=== PATIENT | female | born 1965 | race Caucasian/White ===

== ENCOUNTER 2017-11-27 23:33 | Emergency (ER) | payer OTHER ==
[~2017-11-27] VITALS: Ht 157.5 cm; Wt 86.2 kg
[~2017-11-27 23:33] MED LIST: APAP500; FLONASE 0.05%50 MCG NASAL
[2017-11-28] MEDS ORDERED: MOBIC15 MG PO (03:08)
[2017-11-28] MEDS ORDERED: ZOFRAN ODT4 MG PO (03:08)
[2017-11-28 03:21] VITALS: BP 150/82
== END 2017-11-28 03:22 | disposition home or self-care (01) ==
LOC: ER 23:33
DX: S09.90XA Unspecified injury of head, initial encounter (principal); S16.1XXA Strain of muscle, fascia and tendon at neck level, initial encounter; R07.9 Chest pain, unspecified; M25.569 Pain in unspecified knee; Z90.89 Acquired absence of other organs; Z88.6 Allergy status to analgesic agent; Z88.1 Allergy status to other antibiotic agents; Z91.040 Latex allergy status; Z88.5 Allergy status to narcotic agent; V89.2XXA Person injured in unspecified motor-vehicle accident, traffic, initial encounter; Y93.89 Activity, other specified; Y92.89 Other specified places as the place of occurrence of the external cause; Y99.8 Other external cause status

== ENCOUNTER → 2018-04-28 | Outpatient (CLI) | payer OTHER ==
[~2018-04-28] MED LIST changes: +MOBIC15 MG PO; +ZOFRAN ODT4 MG PO
--- NOTE | ~2018-04-28 | 2DMMODE ---
[facility] [place] [address] 2 D/M-MODE ECHOCARDIOGRAM Name: ROBEL BUSH Room #: REG CL [facility]#: [id number] Admission: 04/28/18 Attend Phys: Jesus Friedman MD Discharge: Date of : 63 Date of Service: 04/28/18 1047 Report #: [id number] THIS REPORT FOR: //name// APPROVED REPORT Study performed: 04/28/2018 09:28:58 EXAM: Comprehensive 2D, Doppler, and color-flow Echocardiogram Patient Location: Out-Patient Status: routine BSA: 1.85 HR: 75 bpm BP: 119/74 mmHg Rhythm: NSR Other Information Study Quality: Adequate Indications Chest Pain 2D Dimensions RVDd: 18.79 mm IVSd: 8.84 (7-11mm) LVOT Diam: 19.83 (18-24mm) LVDd: 42.63 mm PWd: 8.57 (7-11mm) Ascending Ao: 33.05 (22-36mm) LVDs: 28.72 (25-40mm) Aortic Root: 33.50 mm Volumes Left Atrial Volume (Systole) Single Plane 4CH: 37.63 mL Single Plane 2CH: 50.08 mL LA ESV Index: 25.00 mL/m2 Aortic Valve AoV Peak Ant.: 1.30 m/s AO Peak Gr.: 6.78 mmHg LVOT Max P.54 mmHg LVOT Max V: 1.18 m/s MYRNA Vmax: 2.79 cm2 Mitral Valve E/A Ratio: 0.8 MV Decel. Time: 221.48 ms MV E Max Ant.: 0.67 m/s [facility] [address] [place] [address] 2 D/M-MODE ECHOCARDIOGRAM Name: ROBEL BUSH Room #: REG [facility]#: [id number] Admission: 04/28/18 Attend Phys: Jesus Friedman MD Discharge: Date of : 63 Date of Service: 04/28/18 1047 Report #: [id number] A Ant.: 0.79 m/s MV PHT: 64.23 ms IVRT: 87.66 ms Pulmonary Valve PV Peak Ant.: 1.03 m/s PV Peak Gr.: 4.20 mmHg Pulmonary Vein P Vein S: 0.76 m/s P Vein A: 0.39 m/s P Vein D: 0.34 m/s P Vein A Dur.: 92.3 msec P Vein S/D Ratio: 2.24 Tricuspid Valve TR Peak Ant.: 2.01 m/s RAP Estimate: 5.00 mmHg TR Peak Gr.: 16.16 mmHg PA Pressure: 21.00 mmHg Left Ventricle The left ventricle is normal size. There is normal LV segmental wall motion. There is normal left ventricular wall thickness. The left ventricular systolic function is normal. LVEF is 60-65%. Mild diastolic dysfunction is present (impaired relaxation pattern). Right Ventricle The right ventricle is normal size. The right ventricular systolic function is normal. Atria The left atrium size is normal. The right atrium size is normal. Aortic Valve The aortic valve is normal in structure. No aortic regurgitation is present. There is no aortic valvular stenosis. Mitral Valve The mitral valve is normal in structure. There is no mitral valve regurgitation noted. No evidence of mitral valve stenosis. Tricuspid Valve The tricuspid valve is normal in structure. Trace tricuspid regurgitation. Estimated PAP is 20-25mmHg. Pulmonic Valve The pulmonary valve is normal in structure. Trace pulmonic [address] [address] 2 D/M-MODE ECHOCARDIOGRAM Name: ROBEL BUSH Room #: REG CL [facility]#: [id number] Admission: 04/28/18 Attend Phys: Jesus Friedman MD Discharge: Date of : 63 Date of Service: 04/28/18 1047 Report #: [id number] regurgitation. Great Vessels The aortic root is normal in size. The ascending aorta is normal in size. IVC is normal in size and collapses >50% with inspiration. Pericardium There is no pericardial effusion. <Conclusion> The left ventricle is normal size. There is normal left ventricular wall thickness. The left ventricular systolic function is normal. Mild diastolic dysfunction is present (impaired relaxation pattern). The right ventricle is normal size. The left atrium size is normal. The aortic valve is normal in structure. There is no mitral valve regurgitation noted. Trace tricuspid regurgitation. Estimated PAP is 20-25mmHg. <ELECTRONICALLY SIGNED> By: Jesus Friedman MD 04/28/18 1047 1047 [id number] Jesus Friedman MD /INF
== END ==
LOC: NUC 06:57
DX: R07.9 Chest pain, unspecified (principal); R00.2 Palpitations; R06.00 Dyspnea, unspecified; E78.5 Hyperlipidemia, unspecified; I10 Essential (primary) hypertension; Z87.891 Personal history of nicotine dependence

== ENCOUNTER → 2018-05-16 | Outpatient (CLI) | payer OTHER | LOC: ULTRA 07:57 | DX: R10.84 Generalized abdominal pain (principal); R11.2 Nausea with vomiting, unspecified; R68.81 Early satiety ==

== ENCOUNTER 2018-10-03 11:03 | Inpatient (IN) | payer OTHER ==
[~2018-10-03] VITALS: Ht 154.9 cm; Wt 82.6 kg
[2018-10-03 11:03] VITALS: BP 127/85
[~2018-10-03 11:03] MED LIST changes: +ASA5UEC; +ATIVAN0.5 MG
[2018-10-03 13:55] LABS: URINE BILIRUBIN NEGATIVE (Negative); URINE BLOOD TRACE (Negative); URINE CLARITY CLEAR; URINE COLOR YELLOW; URINE GLUCOSE-RANDOM* NEGATIVE (Negative); URINE KETONES NEGATIVE (Negative); URINE LEUKOCYTES-REFLEX NEGATIVE (Negative); URINE NITRITE-REFLEX NEGATIVE (Negative); URINE PROTEIN (DIPSTICK) NEGATIVE (Negative); URINE SPECIFIC GRAVITY <= 1.005 (1.005-1.035); URINE UROBILINOGEN 0.2 E.U./dl (0.2-1.0)
--- NOTE | 2018-10-03 14:00 | NUR ---
AUDRA CARMEN, CALLED LAB TO NOTIFY OF SPECIMENS SENT AT 1140
[2018-10-03 14:07] LABS: ABSOLUTE NEUTROPHILS 4.4 thou/uL (1.4-8.2); BASOPHILS 0.2 % (0.0-2.0); EOSINOPHILS 0.8 % (0.0-3.0); HEMATOCRIT 41.2 % (37.0-47.0); HEMOGLOBIN 13.7 gm/dL (12.0-15.0); LYMPHOCYTES 21.8 % (24.0-44.0); MCH 27.7 pg (26.0-34.0); MCHC 33.4 g/dL (28.0-37.0); MONOCYTES 9.4 % (1.0-8.0); PLATELET COUNT 259 thou/uL (150-400); POLYS 67.8 % (36.0-66.0); RBC 4.96 mil/uL (4.20-5.00); RDW 13.8 % (10.5-14.5); WBC 6.5 thou/uL (4.0-11.0)
[2018-10-03 14:09] LABS: CREATININE 0.6 mg/dL (0.6-1.0); POTASSIUM 4.1 mmol/L (3.5-5.1)
[2018-10-03 18:01] VITALS: BP 129/80
[2018-10-03 18:27] VITALS: BP 115/66
--- NOTE | 2018-10-03 19:21 | NUR ---
REC REPORT ON PT AROUND 1835, GOT HER SETTLED IN THE ROOM, SHOWED HER CALL LIGHT, GOT HER SPOUSE WATER, AND ADMIT NURSE CAME IN TO TAKE OVER ADMIT. GAVE REPORT TO AUDRA ELY. PT A&0X4, CLOSE SBA D/T PAIN IN BLE. ENCOURAGED ALL TO USE CALL LIGHT FOR ANY NEEDS. PLACED BED ALARM ON WELL
[2018-10-03 19:32] VITALS: BP 150/87
[2018-10-03] MEDS ORDERED: LISINOPRIL20 MG PO (20:54)
[2018-10-03] MEDS ORDERED: PAXIL10 MG PO (21:39)
--- NOTE | 2018-10-04 03:28 | NUR ---
Pt came up to unit approx 1845. Admit nurse completes admission history and education. Admission assessment completed. Pt complaints of lower back pain. Prn pain meds administered and relief obtained. Pt med rec completed. Pt c/o nausea. Credit Portfolio Manager on duty notified about pt home meds to be restarted and antiemetic needed. New orders noted. SBA with walker and gait belt. Call light within reach. Will continue to monitor.
[2018-10-04 04:30] VITALS: BP 127/78
[2018-10-04 08:08] VITALS: BP 143/70
--- NOTE | 2018-10-04 13:37 | NUR ---
INITIAL ASSESSMENT: Pt evaluated for d/c planning needs. Reviewed chart and spoke with nurse, PT and pt. Pt is alert and oriented. Pt lives in house with spouse and was independent with ADL's prior to admission to the hospital. Pt has cane at home. Pt was evaluated by [facility] and PT. Plan is for pt to return home with outpatient PT. [facility] will deliver walker to pt prior to d/c. No other needs identified.
[2018-10-04 17:27] VITALS: BP 129/87
--- NOTE | 2018-10-04 17:41 | NUR ---
REPORT GIVEN TO [facility] NURSE, PATIENT AND BELONGINGS TAKEN VIA W/C TO ROOM 224. PT TAKEN AT 1720
--- NOTE | 2018-10-04 20:01 | NUR ---
PATIENT TRANSFERRED FROM [facility], REPORT RECEIVED FROM MALIHA/AUDRA. PATIENT C/O PAIN WITH BACK AREA. PATIENT UP AD ESTEFANI, HAS CANE FOR ASSISTANCE. PATIENT HAS RIGHT WRIST IV IN PLACE. WILL CONTINUE TO MONITOR.
[2018-10-04 22:07] VITALS: BP 129/87
--- NOTE | 2018-10-05 05:38 | NUR ---
Assumed pt. care at 1900. Pt. reamins A&Ox4; swallows meds whole w/o difficulty. Remains cont. B&B. Ambulates independently to bathroom w/ steady gait. R hand SL noted and flushed w/o difficulty. Last BM 10/03/18, per pt. Glasses noted to face. Pt. denies pain or discomfort. No s/s of acute distress noted. Pt. asleep in bed w/ call light/desired belongings with reach. Po fluids encouraged. Will continue to monitor.
[2018-10-05 08:15] VITALS: BP 106/76
[2018-10-05 08:45] VITALS: BP 106/76
[2018-10-05 09:24] VITALS: BP 106/76
[2018-10-05] MEDS ORDERED: AMBIEN 5 MG TABL5 M1 PO (10:26)
[2018-10-05] MEDS ORDERED: LIDOPATCH1 EACH TRANSDERM (10:26)
[2018-10-05] MEDS ORDERED: HYDROCODON-ACE1 EAC7 PO (10:26)
[2018-10-05] MEDS ORDERED: FLEXERIL PO (10:26)
--- NOTE | 2018-10-05 10:45 | NUR ---
DISCHARGE NOTE: SW reviewed chart and spoke with nursing. Pt was transferred to [facility] from and is progressing towards goals for discharge. Discharge anticipated for today. Plan is for pt to d/c home. [facility] delivered pt's new roller walker to her room. Pt's family will provide transportation home. No SW needs identified at this time, but is available to assist should needs arise.
--- NOTE | 2018-10-05 11:36 | NUR ---
ASSUMED PATIENT AND CARES AT 0715, PATIENT LAYING IN BED RESTING, A&OX4, C/O PAIN 12/19 TO LOWER BACK, PATIENT REQUEST PAIN MEDICATION AFTER EATING BREAKFAST, PATIENT UP AD ESTEFANI WITH CANE OR WALKER, RIGHT FOREARM SALINE LOCKED INTACT, PERSONAL BELONGINGS AND CALL LIGHT IN REACH, WILL CONTINUE TO MONITOR
--- NOTE | 2018-10-05 15:46 | NUR ---
PATIENT DISCHARGED HOME WITH HOME HEALTH, REMAINS A&OX4, PAIN CONTROLLED AT THIS TIME, AND SON HERE TO TACKER OFF PATIENT AND BELONGINGS, NURSE WENT OVER DISCHARGE INSTRUCTIONS AND PAPERWORK WITH PATIENT AND FAMILY, RIGHT FOREARM SALINE LOCK PULLED REPLACED WITH GAUZE AND TAPE, TRANSPORT TOOK PATIENT TO [facility] ENTRANCE
== END 2018-10-05 15:54 | disposition home health service (06) | DRG 552 ==
LOC: ER 11:03 → 4E 17:31 → EROBS 17:31 → ER 17:31 → 4E 17:31 → EROBS 18:32 → 4E 18:32 → SICU 10-04 11:00 → ER 10-04 17:15 → SICU 10-04 17:15 → 4E 10-04 17:15 → EROBS 10-05 15:54
PROVIDERS: Nurse Practitioner Family; ADMIT Internal Medicine
DX: M47.896 Other spondylosis, lumbar region (principal); M51.36 Other intervertebral disc degeneration, lumbar region; G89.29 Other chronic pain; J30.2 Other seasonal allergic rhinitis; Z90.49 Acquired absence of other specified parts of digestive tract; Z90.710 Acquired absence of both cervix and uterus; Z88.8 Allergy status to other drugs, medicaments and biological substances; Z88.6 Allergy status to analgesic agent; Z91.040 Latex allergy status; Z79.82 Long term (current) use of aspirin; Z79.899 Other long term (current) drug therapy
CPT/HCPCS: 10084; 15002